=== PATIENT | female | born 1990 | race American Indian/Alaskan Native ===

== ENCOUNTER 2017-06-24 12:59 | Emergency (ER) | payer MEDICAID ==
--- NOTE | 2017-06-24 15:46 | Emergency Department Report ---
Vomiting/Diarrhea - [facility] Chief Complaint: Nausea/Vomiting/Diarrhea Stated Complaint: FOOD POISONING Time Seen by Provider: 06/24/17 15:09 Duration: Today Severity: mild Nausea/Vomiting Severity: Mild Diarrhea Severity: None Pain Severity: None Symptoms: Yes Able to Tolerate Fluids, Yes Recent Unusual Foods (sonic burger), Yes Family w/ Similar Symptoms, No Watery Diarrhea, No Bloody diarrhea, No Fever , No Recent Untreated Water, No Recent use of Antibiotics, No Contacts w/ Similar Symptoms, No Rash, No Hematuria, No Recent URI Symptoms Other History: This is a 26-year-old female who is here with her 34-year-old male friend complaining of vomiting episodes shortly after eating A Hamburger Earlier Today. Denies Symptoms ED Review of Systems ROS: Stated complaint: FOOD POISONING Other details as noted in HPI Constitutional: denies: chills, fever Eyes: denies: eye pain, eye discharge, vision change ENT: denies: ear pain, throat pain Respiratory: denies: cough, shortness of breath, wheezing Cardiovascular: denies: chest pain, palpitations Endocrine: no symptoms reported Gastrointestinal: nausea, vomiting, diarrhea. denies: abdominal pain Genitourinary: denies: urgency, dysuria, discharge Musculoskeletal: denies: back pain, joint swelling, arthralgia Skin: denies: rash, lesions, pruritus Neurological: denies: headache, weakness, paresthesias Psychiatric: denies: anxiety, depression Hematological/Lymphatic: denies: easy bleeding, easy bruising ED Past Medical Hx - Past Medical History Previous Medical History?: No - Surgical History Past Surgical History?: No - Social History Smoking Status: Former Smoker Substance Use Type: None - Medications Home Medications: Home Medications Medication Instructions Recorded Confirmed Last Taken Type Ondansetron [Zofran ODT TAB] 8 mg PO Q12HR #10 tab.rapdis 06/24/17 Unknown Rx Vomiting Diarrhea Exam - Exam General: Vital signs noted. No distress. Alert and acting appropriately. HEENT: Yes Moist Mucous Membranes, No Pharyngeal Erythema, No Pharyngeal Exudates, No Rhinorrhea, No Conjuctival Injection, No Frontal Tenderness, No Maxillary Tenderness Neck: No Adenopathy, No Rigidity Lungs: Yes Clear Lung Sounds, Yes Good Air Exchange, No Wheezes, No Stridor, No Cough, No Nasal Flaring, No Retractions, No Use of Accessory Muscles Heart exam: Regular: Yes, Murmur: No, Tachycardia: No Abdomen: Tenderness: No, Peritoneal Signs: No, Distention: No, Hyperactive Bowel sounds: No Skin exam: Rash: No, Edema: No, Normal turgor: Yes Neurologic: Alert and oriented, no deficits. Musculoskeletal: Unremarkable. ED Course Vital Signs 06/24/17 13:16 Temperature 98.6 F Pulse Rate 75 Respiratory 16 Rate Blood Pressure 121/76 O2 Sat by Pulse 100 Oximetry ED Medical Decision Making - Medical Decision Making 26-year-old female presents with food poisoning /acute gastroenteritis ED course: Patient received benadryl and Zofran in ED There was no episodes of vomiting or diarrhea in the ED. Vital signs are stable patient is in no acute distress Discussed the patient to keep hydrated and increase hydration. I discussed part-time with the patient. I discussed the patient to follow up with primary care physician. Critical care attestation.: If time is entered above; I have spent that time in minutes in the direct care of this critically ill patient, excluding procedure time. ED Disposition Clinical Impression: Food poisoning Qualifiers: Encounter type: initial encounter Injury intent: accidental or unintentional Qualified Code(s): T62.91XA - Toxic effect of unspecified noxious substance eaten as food, accidental (unintentional), initial encounter Disposition: DC-01 TO HOME OR SELFCARE Is pt being admited?: No Does the pt Need Aspirin: No Condition: Stable Instructions: Gastroenteritis (ED), Acute Nausea and Vomiting (ED), Food Poisoning (ED) Additional Instructions: Make sure to follow up with the primary care physician as discussed. Take all your medications as you've been prescribed. Drink plenty of fluids If you have any worsening symptoms or develop new symptoms please return to ED immediately. Prescriptions: Ondansetron [Zofran ODT TAB] 8 mg PO Q12HR #10 tab.rapdis Referrals: PRIMARY CARE, [Primary Care Provider] - 3-5 Days YSABEL FALLON MD [Referring] - 3-5 Days [facility] [Outside] - 3-5 Days [facility] [Outside] - 3-5 Days Forms: Accompanied Note, Work/School Release Form(ED) Time of Disposition: 15:45
[2017-06-24] MEDS ORDERED: ZOFRAN ODT PO ONE (15:47)
[2017-06-24] MEDS ORDERED: BENADRYL PO ONE (15:47)
[2017-06-24 16:39] VITALS: BP 122/74
== END 2017-06-24 16:38 | disposition home or self-care (01) ==
LOC: ED 12:59
DX: T62.91XA Toxic effect of unspecified noxious substance eaten as food, accidental (unintentional), initial encounter (principal); Z87.891 Personal history of nicotine dependence; Y92.89 Other specified places as the place of occurrence of the external cause
CPT/HCPCS: 99282; Q0162

== ENCOUNTER 2018-08-16 23:19 | Emergency (ER) | payer MEDICAID ==
[2018-08-16 23:25] VITALS: BP 119/72
[2018-08-17] MEDS ORDERED: XYLOCAINE 1% 20 mL INFILTRATI ONE (01:51)
--- NOTE | 2018-08-17 01:54 | Emergency Department Report ---
- General Chief complaint: Skin/Abscess/Foreign Body Stated complaint: BOIL Time Seen by Provider: 08/17/18 01:29 Source: patient Mode of arrival: Ambulatory Limitations: No Limitations - History of Present Illness Initial comments: Pt is a 28 yo female who presents to the ED with an abscess to the right axilla that began 3 days ago. The patient states it began as a small spot but has increased in size. She states she tried to do warm compresses. The patient denies any fever, drainage, or any other sx. She denies ever having before. The patient states she does not shave her armpits but uses foley. She denies any PMHx or allergies to medications. - Related Data Previous Rx's Medication Instructions Recorded Last Taken Type Ondansetron [Zofran ODT TAB] 8 mg PO Q12HR #10 tab.rapdis 06/24/17 Unknown Rx Allergies Allergy/AdvReac Type Severity Reaction Status Date / Time acetaminophen Allergy Rash Verified 08/17/18 02:29 [From Tylenol-Codeine #3] codeine Allergy Rash Verified 08/17/18 02:29 [From Tylenol-Codeine #3] Abscess Boil HPI - HPI Chief Complaint: Skin/Abscess/Foreign Body Stated Complaint: BOIL Time Seen by Provider: 08/17/18 01:29 Home Medications: Previous Rx's Medication Instructions Recorded Last Taken Type Ondansetron [Zofran ODT TAB] 8 mg PO Q12HR #10 tab.rapdis 06/24/17 Unknown Rx Allergies/Adverse Reactions: Allergies Allergy/AdvReac Type Severity Reaction Status Date / Time acetaminophen Allergy Rash Verified 08/17/18 02:29 [From Tylenol-Codeine #3] codeine Allergy Rash Verified 08/17/18 02:29 [From Tylenol-Codeine #3] ED Review of Systems ROS: Stated complaint: BOIL Other details as noted in HPI Comment: All other systems reviewed and negative ED Past Medical Hx - Past Medical History Previous Medical History?: No - Surgical History Past Surgical History?: No - Social History Smoking Status: Never Smoker Substance Use Type: None - Medications Home Medications: Home Medications Medication Instructions Recorded Confirmed Last Taken Type Ondansetron [Zofran ODT TAB] 8 mg PO Q12HR #10 tab.rapdis 06/24/17 Unknown Rx ED Physical Exam - General Limitations: No Limitations General appearance: alert, in no apparent distress - Head Head exam: Present: atraumatic, normocephalic - Eye Eye exam: Present: normal appearance - ENT ENT exam: Present: mucous membranes moist - Neurological Exam Neurological exam: Present: alert, oriented X3 - Psychiatric Psychiatric exam: Present: normal affect, normal mood - Skin Skin exam: Present: warm, other (4 cm area of induration and fluctuance to the right axilla, no surrounding cellulitis) ED Course Vital Signs 08/16/18 08/17/18 23:23 02:45 Temperature 98.7 F Pulse Rate 95 H 88 Respiratory 18 17 Rate Blood Pressure 119/72 O2 Sat by Pulse 100 99 Oximetry - I & D Right Arm Type of Procedure: Simple (right axilla) Site: right axilla Blade Size: 11 I & D Procedure: betadine prep, sterile drapes applied, sterile dressing applied Progress: betadine prepped and drapes applied, 5 cc of 1% lidocaine used, copious amounts of purulent drainage expressed, probed, irrigated with 40 cc of saline, placed iodoform packing ED Medical Decision Making - Medical Decision Making Pt is a 28 yo female who presents to the ED with an abscess to the right axilla that began 3 days ago. The patient states it began as a small spot but has increased in size. She states she tried to do warm compresses. The patient denies any fever, drainage, or any other sx. She denies ever having before. The patient states she does not shave her armpits but uses foley. She denies any PMHx or allergies to medications. 4 cm abscess in the right axilla. I&D performed with copious purulent discharge expressed, irrigated, sterile packing placed. Advised pt that packing would need to be removed in the next 2 days either by primary care or return to the emergency room. Advised pt to keep clean and dry. May wash around the area with soap and water and dry immediately. No bath tub, pool, or hot tub. Follow up with a primary care doctor in the next 2-3 days. Return to the emergency room immediately for any new or worsening symptoms. Critical care attestation.: If time is entered above; I have spent that time in minutes in the direct care of this critically ill patient, excluding procedure time. ED Disposition Clinical Impression: Abscess Disposition: DC-01 TO HOME OR SELFCARE Is pt being admited?: No Does the pt Need Aspirin: No Condition: Stable Instructions: Abscess Incision and Drainage (ED), Abscess (ED) Additional Instructions: Please follow up with a primary care doctor in the next 2-3 days. Packing will need to be removed in the next 2 days, may go to primary care or be seen in the emergency room. please keep area clean and dry. do not get in pool, hot tub, or bath. may wash around area with soap and water and immediately dry. return to the emergency room for any new or worsening symptoms. May take tylenol or motrin for any discomfort. Referrals: BRODERICK SAWYER MD [Primary Care Provider] - 2-3 Days Time of Disposition: 02:28 Print Language: GUAMANIAN
[2018-08-17] MEDS ORDERED: TYLENOL #3 PO ONE (02:19)
[2018-08-17] MEDS ORDERED: IBUPROFEN PO ONE (02:25)
[2018-08-17] MEDS ORDERED: IBUPROFEN ONE (02:28)
== END 2018-08-17 02:45 | disposition home or self-care (01) ==
LOC: ED 23:19
DX: L02.411 Cutaneous abscess of right axilla (principal); Z88.5 Allergy status to narcotic agent

== ENCOUNTER 2018-08-20 14:59 | Emergency (ER) | payer MEDICAID ==
--- NOTE | 2018-08-20 15:05 | Emergency Department Report ---
Blank Doc - Documentation Documentation: I&D TO ARM A FEW DAYS AGO AND RETURNS TO ED FOR PACKING REMOVAL. NO COMPLICATIO NS.
--- NOTE | 2018-08-20 15:12 | Emergency Department Report ---
- General Chief Complaint: Skin/Abscess/Foreign Body Stated Complaint: PACKING REMOVAL Time Seen by Provider: 08/20/18 15:04 Source: patient Mode of arrival: Ambulatory Limitations: No Limitations - History of Present Illness Initial Comments: ABSCESS INCISED A FEW DAYS AGO AND HERE FOR WOUND RECHECK AND PACKING REMOVAL. PT REPORTS TAKING NO ABX -: days(s) Extremity Location: Right: Shoulder (RIGHT AXILLA ABSCESS RECHECK. PACKING CHECK) Associated Symptoms: none - Related Data Previous Rx's Medication Instructions Recorded Last Taken Type Ondansetron [Zofran ODT TAB] 8 mg PO Q12HR #10 tab.rapdis 06/24/17 Unknown Rx Chlorhexidine Gluconate [Hibiclens] 10 ml TP BID #240 liquid 08/20/18 Unknown Rx Mupirocin [Bactroban 2%] 15 applic TP TID #15 gm 08/20/18 Unknown Rx Sulfamethoxazole/Trimethoprim 1 each PO BID #20 tablet 08/20/18 Unknown Rx [Bactrim DS TAB] Allergies Allergy/AdvReac Type Severity Reaction Status Date / Time acetaminophen Allergy Rash Verified 08/17/18 02:29 [From Tylenol-Codeine #3] codeine Allergy Rash Verified 08/17/18 02:29 [From Tylenol-Codeine #3] ED Review of Systems ROS: Stated complaint: PACKING REMOVAL Other details as noted in HPI Constitutional: denies: chills, fever Eyes: denies: eye pain, eye discharge, vision change ENT: denies: ear pain, throat pain Respiratory: denies: cough, shortness of breath, wheezing Cardiovascular: denies: chest pain, palpitations Endocrine: no symptoms reported Gastrointestinal: denies: abdominal pain, nausea, diarrhea Genitourinary: denies: urgency, dysuria, discharge Musculoskeletal: denies: back pain, joint swelling, arthralgia Skin: denies: rash, lesions Neurological: denies: headache, weakness, paresthesias, other Psychiatric: denies: anxiety, depression Hematological/Lymphatic: denies: easy bleeding, easy bruising ED Past Medical Hx - Past Medical History Previous Medical History?: No - Surgical History Past Surgical History?: Yes Additional Surgical History: C section - Social History Smoking Status: Never Smoker Substance Use Type: None - Medications Home Medications: Home Medications Medication Instructions Recorded Confirmed Last Taken Type Ondansetron [Zofran ODT TAB] 8 mg PO Q12HR #10 tab.rapdis 06/24/17 Unknown Rx Chlorhexidine Gluconate [Hibiclens] 10 ml TP BID #240 liquid 08/20/18 Unknown Rx Mupirocin [Bactroban 2%] 15 applic TP TID #15 gm 08/20/18 Unknown Rx Sulfamethoxazole/Trimethoprim 1 each PO BID #20 tablet 08/20/18 Unknown Rx [Bactrim DS TAB] ED Physical Exam - General Limitations: No Limitations General appearance: alert, in no apparent distress - Head Head exam: Present: atraumatic, normocephalic - Eye Eye exam: Present: normal appearance, PERRL, EOMI Pupils: Present: normal accommodation - ENT ENT exam: Present: normal exam, mucous membranes moist - Neck Neck exam: Present: normal inspection, full ROM - Respiratory Respiratory exam: Present: normal lung sounds bilaterally. Absent: respiratory distress, rhonchi, stridor - Cardiovascular Cardiovascular Exam: Present: regular rate, normal rhythm. Absent: systolic murmur, diastolic murmur, rubs, gallop - GI/Abdominal GI/Abdominal exam: Present: soft, normal bowel sounds. Absent: guarding, roshan ound, hypoactive bowel sounds - Extremities Exam Extremities exam: Present: normal inspection - Back Exam Back exam: Present: normal inspection - Neurological Exam Neurological exam: Present: alert, oriented X3 - Psychiatric Psychiatric exam: Present: normal affect, normal mood - Skin Skin exam: Present: warm, dry, intact, normal color. Absent: rash ED Medical Decision Making - Medical Decision Making PACKING REMOVAL FROM RIGHT AXILLA Critical care attestation.: If time is entered above; I have spent that time in minutes in the direct care of this critically ill patient, excluding procedure time. ED Disposition Clinical Impression: Wound check, abscess, Abscess packing removal Disposition: DC- TO HOME OR SELFCARE Is pt being admited?: No Does the pt Need Aspirin: No Condition: Stable Instructions: Abscess Incision and Drainage (ED) Referrals: [facility] [Provider Group] - 3-5 Days
[2018-08-20 15:18] VITALS: BP 146/79
== END 2018-08-20 16:30 | disposition home or self-care (01) ==
LOC: ED 14:59
DX: Z48.01 Encounter for change or removal of surgical wound dressing (principal)
CPT/HCPCS: 99282

== ENCOUNTER 2019-06-08 19:54 | Emergency (ER) | payer SELFPAY ==
--- NOTE | 2019-06-08 20:42 | Event Note ---
ED Screening Note Date of service: 06/08/19 Time: 20:38 ED Screening Note: This is a 28 y.o. F. that presents to the ER with painful abscess to left axilla for 1 day. Patient reports a history of abscess under right arm. Denies fever or drainage. This initial assessment/diagnostic orders/clinical plan/treatment(s) is/are subject to change based on patients health status, clinical progression and re- assessment by fellow clinical providers in the ED. Further treatment and workup at subsequent clinical providers discretion. Patient/guardian urged not to elope from the ED as their condition may be serious if not clinically assessed and managed. Initial orders include:
--- NOTE | 2019-06-08 22:43 | Emergency Department Report ---
- General Chief complaint: Wound/Laceration Stated complaint: BOIL UNDER LT ARM Time Seen by Provider: 06/08/19 20:38 Source: patient Mode of arrival: Ambulatory Limitations: No Limitations - Related Data Previous Rx's Medication Instructions Recorded Last Taken Type Ondansetron [Zofran ODT TAB] 8 mg PO Q12HR #10 tab.rapdis 06/24/17 Unknown Rx Chlorhexidine Gluconate [Hibiclens] 10 ml TP BID #240 liquid 08/20/18 Unknown Rx Mupirocin [Bactroban 2%] 15 applic TP TID #15 gm 08/20/18 Unknown Rx LORazepam [Ativan] 0.5 mg PO BID PRN #4 tab 01/06/19 Unknown Rx methOCARBAMOL [Robaxin] 750 mg PO Q8H PRN #21 tablet 01/06/19 Unknown Rx Ketorolac [Toradol] 10 mg PO Q6H PRN #15 tablet 06/08/19 Unknown Rx Sulfamethoxazole/Trimethoprim 1 each PO BID #20 tablet 06/08/19 Unknown Rx [Bactrim DS TAB] traMADoL [Ultram 50 MG tab] 50 mg PO Q6HR PRN #20 tablet 06/08/19 Unknown Rx Allergies Allergy/AdvReac Type Severity Reaction Status Date / Time acetaminophen Allergy Rash Verified 01/06/19 09:47 [From Tylenol-Codeine #3] codeine Allergy Rash Verified 01/06/19 09:47 [From Tylenol-Codeine #3] Abscess Boil HPI - HPI Chief Complaint: Wound/Laceration Stated Complaint: BOIL UNDER LT ARM Time Seen by Provider: 06/08/19 20:38 Home Medications: Previous Rx's Medication Instructions Recorded Last Taken Type Ondansetron [Zofran ODT TAB] 8 mg PO Q12HR #10 tab.rapdis 06/24/17 Unknown Rx Chlorhexidine Gluconate [Hibiclens] 10 ml TP BID #240 liquid 08/20/18 Unknown Rx Mupirocin [Bactroban 2%] 15 applic TP TID #15 gm 08/20/18 Unknown Rx LORazepam [Ativan] 0.5 mg PO BID PRN #4 tab 01/06/19 Unknown Rx methOCARBAMOL [Robaxin] 750 mg PO Q8H PRN #21 tablet 01/06/19 Unknown Rx Ketorolac [Toradol] 10 mg PO Q6H PRN #15 tablet 06/08/19 Unknown Rx Sulfamethoxazole/Trimethoprim 1 each PO BID #20 tablet 06/08/19 Unknown Rx [Bactrim DS TAB] traMADoL [Ultram 50 MG tab] 50 mg PO Q6HR PRN #20 tablet 06/08/19 Unknown Rx Allergies/Adverse Reactions: Allergies Allergy/AdvReac Type Severity Reaction Status Date / Time acetaminophen Allergy Rash Verified 01/06/19 09:47 [From Tylenol-Codeine #3] codeine Allergy Rash Verified 01/06/19 09:47 [From Tylenol-Codeine #3] ED Review of Systems ROS: Stated complaint: BOIL UNDER LT ARM Other details as noted in HPI ED Past Medical Hx - Past Medical History Previous Medical History?: No - Surgical History Past Surgical History?: Yes Additional Surgical History: C section - Social History Smoking Status: Never Smoker Substance Use Type: None - Medications Home Medications: Home Medications Medication Instructions Recorded Confirmed Last Taken Type Ondansetron [Zofran ODT TAB] 8 mg PO Q12HR #10 tab.rapdis 06/24/17 Unknown Rx Chlorhexidine Gluconate [Hibiclens] 10 ml TP BID #240 liquid 08/20/18 Unknown Rx Mupirocin [Bactroban 2%] 15 applic TP TID #15 gm 08/20/18 Unknown Rx LORazepam [Ativan] 0.5 mg PO BID PRN #4 tab 01/06/19 Unknown Rx methOCARBAMOL [Robaxin] 750 mg PO Q8H PRN #21 tablet 01/06/19 Unknown Rx Ketorolac [Toradol] 10 mg PO Q6H PRN #15 tablet 06/08/19 Unknown Rx Sulfamethoxazole/Trimethoprim 1 each PO BID #20 tablet 06/08/19 Unknown Rx [Bactrim DS TAB] traMADoL [Ultram 50 MG tab] 50 mg PO Q6HR PRN #20 tablet 06/08/19 Unknown Rx ED Physical Exam - General Limitations: No Limitations ED Course Vital Signs 06/08/19 19:57 Temperature 99.3 F Pulse Rate 111 H Respiratory 18 Rate Blood Pressure 110/74 O2 Sat by Pulse 100 Oximetry Critical care attestation.: If time is entered above; I have spent that time in minutes in the direct care of this critically ill patient, excluding procedure time. ED Disposition Clinical Impression: Abscess Disposition: DC-01 TO HOME OR SELFCARE Is pt being admited?: No Does the pt Need Aspirin: No Condition: Stable Instructions: Abscess (ED) Prescriptions: Sulfamethoxazole/Trimethoprim [Bactrim DS TAB] 1 each PO BID #20 tablet Ketorolac [Toradol] 10 mg PO Q6H PRN #15 tablet PRN Reason: Pain traMADoL [Ultram 50 MG tab] 50 mg PO Q6HR PRN #20 tablet PRN Reason: Pain Referrals: PRIMARY CARE, [Primary Care Provider] - 3-5 Days
[2019-06-08] MEDS ORDERED: LIDOCAINE-MPF (1%) 10 MG/1 ML VIAL 5 ML ONE (22:44)
[2019-06-08] MEDS ORDERED: LIDOCAINE-MPF (1%) 10 MG/1 ML VIAL 5 ML INFILTRATI ONE (22:52)
[2019-06-08] MEDS ORDERED: LORazepam 1 MG TAB PO ONE (23:21)
[2019-06-08] MEDS ORDERED: CYCLOBENZAPRINE 10 MG TAB PO ONE (23:38)
[2019-06-08 23:43] VITALS: BP 108/78
[2019-06-08] MEDS ORDERED: oxyCODONE /ACETAMINOPHEN 5-325MG TAB PO ONE (23:51)
[2019-06-08] MEDS ORDERED: oxyCODONE /ACETAMINOPHEN 5-325MG TAB ONE (23:53)
[2019-06-08] MEDS ORDERED: KETOROLAC 10 MG TAB PO ONE (23:58)
== END 2019-06-08 23:58 | disposition home or self-care (01) ==
LOC: ED 19:54
DX: L02.414 Cutaneous abscess of left upper limb (principal); Z88.6 Allergy status to analgesic agent; Z98.890 Other specified postprocedural states; Z79.899 Other long term (current) drug therapy
CPT/HCPCS: 99282

== ENCOUNTER 2020-09-13 10:28 | Emergency (ER) | payer SELFPAY ==
[2020-09-13 12:03] VITALS: BP 108/72
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
== END 2020-09-13 14:56 | disposition home or self-care (01) ==
LOC: ED 10:28
DX: S16.1XXA Strain of muscle, fascia and tendon at neck level, initial encounter (principal); S29.012A Strain of muscle and tendon of back wall of thorax, initial encounter; Z98.890 Other specified postprocedural states; Z79.899 Other long term (current) drug therapy; V89.2XXA Person injured in unspecified motor-vehicle accident, traffic, initial encounter; Y93.89 Activity, other specified; Y92.488 Other paved roadways as the place of occurrence of the external cause; Y99.8 Other external cause status
CPT/HCPCS: 99282